=== PATIENT | female | born 1980 | race Caucasian/White ===

== ENCOUNTER → 2016-11-16 | Outpatient (CLI) | payer BC ==
[~2016-11-16] MED LIST: ALLEGRA30 MG PO; BENADRYL50 MG PO; DICYCLOMINE HCL10 MG; FLAGYL500 MG; HYOSCYAMINE0.375 MG PO; NORCO 5/3251 TABLET PO; ORTHO TRI-CY1 TABLE1 PO; PHENERGAN-CODE120 ML PO; PREDNISONE20 MG PO; PREDNISONE5 MG PO; PROAIR HFA8.5 GM IH; PROBIOTIC & AC1 EACH PO; PROBIOTIC1 EAC7 PO; RANITIDINE HCL150 MG; TYLENOL REGULA325 MG PO; VENTOLIN HFA18 GM IH; ZANTAC300 MG PO; ZOFRAN4 MG PO
== END | disposition home or self-care (01) ==
LOC: NUC 09:30
DX: R11.0 Nausea (principal)
CPT/HCPCS: 78227; A9537; J2805

== ENCOUNTER → 2016-12-01 | Outpatient (CLI) | payer BC | END | disposition home or self-care (01) | LOC: NUC 07:21 | DX: R94.8 Abnormal results of function studies of other organs and systems (principal); R68.81 Early satiety | CPT/HCPCS: 78264; A9500; A9541; J2785 ==

== ENCOUNTER 2017-09-17 01:02 | Emergency (ER) | payer BC ==
[~2017-09-17] VITALS: Ht 162.6 cm; Wt 86.6 kg
[2017-09-17 01:49] LABS: HEMATOCRIT 42.5 % (36.0-46.0); MCH 30.1 PG (29.0-34.0); MCHC 33.6 G/DL (30.0-36.0); MCV 89.5 FL (83-99); MEAN PLAT.VOLUME 9.3 uM^3 (9.5-12.4); PLATELET COUNT 476 K/uL (156-360); RBC DIS.WIDTH-CV 12.2 % (11.8-14.6); RBC DIS.WIDTH-SD 40.2 % (39-53); RED BLOOD COUNT 4.75 M/uL (3.80-5.20); WHITE BLOOD COUNT 18.2 K/uL (4.1-10.2)
[2017-09-17 02:00] LABS: CHLORIDE 107 mEq/L (99-109); POTASSIUM 4.1 mEq/L (3.7-5.4); SODIUM 143 mEq/L (136-147)
[2017-09-17 02:02] LABS: GLUCOSE 112 mg/dL (70-99)
[2017-09-17 02:03] LABS: ANION GAP 13 MEQ/L (2-14)
[2017-09-17 02:04] LABS: TOTAL BILIRUBIN 0.5 mg/dL (0.0-1.0)
[2017-09-17 02:05] LABS: ALKALINE PHOSPHATASE 56 IU/L (3-129)
[2017-09-17 02:06] LABS: GFR ESTIMATE (CALCULATED) > 59 mL/min/
[2017-09-17 02:07] LABS: DIRECT BILIRUBIN 0.1 mg/dL (0.0-0.3); UREA NITROGEN (BUN) 17 mg/dL (9-23)
[2017-09-17 02:09] LABS: LIPASE 28 U/L (1.0-51.0)
[2017-09-17 02:38] LABS: QUANTITATIVE HCG < 4.0 MIU/ML
[2017-09-17] MEDS ORDERED: ZOFRAN4 MG PO (03:19)
[2017-09-17 03:53] VITALS: BP 109/71
== END 2017-09-17 03:53 | disposition home or self-care (01) ==
LOC: EME 01:02
DX: K52.9 Noninfective gastroenteritis and colitis, unspecified (principal); J45.909 Unspecified asthma, uncomplicated
CPT/HCPCS: 74176; 80053; 81003; 82248; 83690; 84702; 85027; 99281; 99285; J1885; J2270; J2405; J7030